=== PATIENT | male | born 1940 | race Caucasian/White ===

== ENCOUNTER → 2017-04-30 | Outpatient (CLI) | payer OTHER, MEDICARE ==
[~2017-04-30] MED LIST: GADOBUTROL 10 ML VIAL IVP ONE
== END ==
LOC: FIMAGING 13:52
PROVIDERS: ATTEND Radiology Radiation Oncology
DX: C02.9 Malignant neoplasm of tongue, unspecified (principal)
CPT/HCPCS: 70553; A9585

== ENCOUNTER → 2017-06-02 | Outpatient (CLI) | payer OTHER, MEDICARE | LOC: BHFA 15:30 | PROVIDERS: ATTEND Internal Medicine Cardiovascular Disease | DX: I25.10 Atherosclerotic heart disease of native coronary artery without angina pectoris (principal); E78.5 Hyperlipidemia, unspecified ==

== ENCOUNTER → 2017-07-12 | Outpatient (CLI) | payer OTHER, MEDICARE | LOC: BHFA 13:00 | PROVIDERS: ATTEND Internal Medicine Cardiovascular Disease | DX: I25.10 Atherosclerotic heart disease of native coronary artery without angina pectoris (principal) | CPT/HCPCS: 78452; 93017; A9500 ==

== ENCOUNTER → 2018-10-11 | Outpatient (CLI) | payer OTHER, MEDICARE | LOC: BHFA 13:00 | PROVIDERS: ATTEND Internal Medicine Cardiovascular Disease | DX: R94.31 Abnormal electrocardiogram [ECG] [EKG] (principal); I25.10 Atherosclerotic heart disease of native coronary artery without angina pectoris ==

== ENCOUNTER → 2019-01-29 | Outpatient (CLI) | payer OTHER, MEDICARE ==
--- NOTE | 2019-02-05 08:33 | GCON ---
[f rep st] CONSULTATION PODIATRIC CONSULTATION FOR [facility] DATE OF CONSULTATION: 02/04/2019 CHIEF COMPLAINT: Left foot infection. HISTORY OF PRESENT ILLNESS: The patient is a 78-year-old white male who presents to [facility] with chief complaint of an ulcer on the end of his left big toe. He relates a very long, complicated history to me. He relates that this started back in September of 2018. He relates the area became sore after wearing a pair of shoes. He immediately was moving to spend the winter in [place] where the area became red and eventually ulcerated. He was seen at an urgent care where he was started on an antibiotic , which eventually was of no benefit. He relates that a week later, he was seen again at the urgent care and immediately sent to the emergency room. They started him on IV antibiotics. At that time, he saw 3 different doctors who all recommended amputation to him. He relates that ultimately a small piece of the bone was removed, but no toe amputation was performed. He was started on vancomycin and ceftazidime. He relates that he also started hyperbaric oxygen with Dr. Bernal at the [facility]. He relates that after a couple of weeks, they stopped the vancomycin, and the other antibiotic eventually gave him C difficile. He relates that he was then hospitalized for approximately a week. During that time, he had growth factors applied to the surgical site and eventually on January 21, the area was sutured closed. On January 22, he returned to [facility] and was seen by Dr. Keyona Salgado on the . Since that time, he has been on oral vancomycin waiting to see if the ulceration would heal. He related that upon looking at the ulceration today that it was much larger than it was when it was attempted to be closed surgically. He wonders what other options are available at this time. PAST MEDICAL HISTORY: Remarkable for coronary artery disease, congestive heart failure, Clostridium difficile, diabetes mellitus, history of DVT, atrial fibrillation. PAST SURGICAL HISTORY: Remarkable for left Achilles tendon repair, cataract surgeries, rotator cuff repair, bone biopsy, left hallux. MEDICATIONS: Eliquis, Levemir, Lyrica, metoprolol, NovoLog, simvastatin, vancomycin. ALLERGIES: NKDA. SOCIAL HISTORY: The patient lives at home. Denies smoking or drinking. FAMILY HISTORY: Noncontributory. REVIEW OF SYSTEMS: A 10-point review of systems was performed and deemed negative with the exception of aforementioned medical issues. PHYSICAL EXAM: GENERAL APPERANCE: Well-nourished, well-developed 78-year-old white male in no sign of acute distress. Alert and oriented x3. VITALS: Per list in chart. LOWER EXTREMITY: Vascular, dorsalis pedis, posterior tibial pulses were palpable bilaterally. Capillary refill to the hallux is slightly decreased. Hair growth is diminished. There is mild edema occurring in the left hallux at this time. DERMATOLOGIC: Tone, texture and turgor of the skin are grossly within normal limits. There is an obvious ulceration at the distal tip of the left hallux. It has [address] that have ripped through the far side of the incision. Upon removal, this is noted to be a full-thickness ulceration with slough material at its base. There is hyperkeratotic tissue around the wound edges. After debridement, the area measured 8 x 13 x 10 mm. It probed close but not directly to bone. NEUROLOGIC: Achilles, patellar reflex 2+ bilaterally. Muscle strength 5/5. 5.07 monofilament wire testing shows decreased sensation to both lower extremities. MUSCULOSKELETAL: Range of motion of ankle and subtalar joints are within normal limits and without pain or crepitus. No contraction of the hallux is appreciable. X-RAYS/LABS: X-ray evaluation not performed. Laboratory values not performed. IMPRESSION: 1. Diabetes mellitus. 2. Peripheral neuropathy. 3. 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 PLAN: Treatment today consisted of evaluation of the area. It was decided that debridement was necessary. Informed consent was obtained. The stitches were removed before thorough debridement was performed with a 15 blade back to healthy tissue. The area was cleaned appropriately before being dressed with Hydrofera Blue and a light sterile dressing. We talked about getting an MRI at this time to further evaluate the site for osteomyelitis. If any is seen, I will likely recommend amputation of the affected portion of the hallux. He was understanding. All questions were answered. I will reevaluate him again after the MRI has been performed or sooner if he sees any signs of infection. /[id number]/MODL MTDD
== END ==
LOC: FIMAGING 16:14
PROVIDERS: ATTEND Physician Assistant Medical
DX: R91.8 Other nonspecific abnormal finding of lung field (principal); I50.9 Heart failure, unspecified

== ENCOUNTER → 2019-02-12 | Outpatient (CLI) | payer OTHER, MEDICARE | LOC: FIMAGING 15:15 | PROVIDERS: ATTEND Podiatrist Primary Podiatric Medicine | DX: L97.521 Non-pressure chronic ulcer of other part of left foot limited to breakdown of skin (principal); L03.032 Cellulitis of left toe | CPT/HCPCS: 73720; A9585; 82565-PO ==

== ENCOUNTER → 2019-02-19 | Outpatient (CLI) | payer OTHER, MEDICARE | LOC: BHFA 11:30 | PROVIDERS: ATTEND Internal Medicine Cardiovascular Disease | DX: I50.9 Heart failure, unspecified (principal) | CPT/HCPCS: 78452; 93017; 93306; A9500; J2785 ==

== ENCOUNTER 2019-03-11 12:51 | Day surgery (SDC) | payer OTHER, MEDICARE ==
[2019-03-11] MEDS ORDERED: ceFAZolin 2 GM/DEXTROSE 100 ML IV ONE (13:39)
[2019-03-11] MEDS ORDERED: LR 1,000 ML IV ONE (13:45)
--- NOTE | 2019-03-11 14:12 | PDHPUP ---
History & Physical Update H&P update statement: This history and physical update is based on an assessment of the patient which was completed after admission or registration (within 24 hours), but prior to the surgery/procedure. H&P update: H&P reviewed & patient examined, no change in patient's condition since H&P completed
[2019-03-11] MEDS ORDERED: BUPIVACAINE 0.5% 30 ML SDV ONE (14:14)
[2019-03-11] MEDS ORDERED: BACITRACIN 50,000 UNITS/10 ML SYR IRR ONE (14:14)
--- NOTE | 2019-03-11 14:15 | PDANEPAE ---
ANE Past Medical History - Cardiovascular History Hx Hypertension: Yes Hx Arrhythmias: Yes Hx Chest Pain: No Hx Coronary Artery / Peripheral Vascular Disease: Yes Hx CHF / Valvular Disease: Yes Hx Palpitations: No Cardiovascular History Comment: PAF,CHF,DVT. no AFIB since hospitalization - Pulmonary History Hx COPD: No Hx Asthma/Reactive Airway Disease: No Hx Recent Upper Respiratory Infection: No Hx Oxygen in Use at Home: No Hx Sleep Apnea: No Sleep Apnea Screening Result - Last Documented: Positive - Neurologic History Hx Cerebrovascular Accident: No Hx Seizures: No Hx Dementia: No - Endocrine History Hx Diabetes: Yes Hypothyroid: No Hyperthyroid: No Obesity: no Endocrine History Comment: type 1 IDDM - Renal History Hx Renal Disorders: No - Liver History Hx Hepatic Disorders: No - Neurological & Psychiatric Hx Hx Neurological and Psychiatric Disorders: Yes Neurological / Psychiatric History Comment: peripheral neuropathy - Cancer History Hx Cancer: Yes Cancer History Comment: skin cancer removed x2 - Congenital Disorder History Hx Congenital Disorders: No - GI History GERD: no Hx Gastrointestinal Disorders: Yes Gastrointestinal History Comment: colitis C-DIFF - Other Health History Other Health History: very [place]. diabetic retinopathy. DVT at picc line insertion site - Chronic Pain History Chronic Pain: No - Surgical History Prior Surgeries: achilles tendon repaired. rotator cuff repair ANE Review of Systems Review of Systems: - Exercise capacity Exercise capacity: >=4 METS, limited by disability METS (RN): 4 METS ANE Patient History - Allergies Allergies/Adverse Reactions: ibuprofen Allergy (Verified 08/29/12 15:15) Diarrhea - Home Medications Home Medications: Eliquis 03/07/19 [Last Taken 03/10/19] Levemir 03/07/19 [Last Taken Unknown] Lyrica 03/07/19 [Last Taken 03/11/19] Novolin N 03/07/19 [Last Taken Unknown] Simvastatin 03/07/19 [Last Taken Unknown] novoLOG 03/07/19 [Last Taken 03/11/19] - NPO status NPO Since - Liquids (Date): 03/11/19 NPO Since - Liquids (Time): 06:30 NPO Since - Solids (Date): 03/11/19 NPO Since - Solids (Time): 06:30 - Anes Hx Anes Hx: no prior problems - Smoking Hx Smoking Status: Never smoked Marijuana use: No - Alcohol Use Alcohol Use: Rarely - Family Anes Hx Family Anes Hx: neg - N/A Family Hx Anesthesia Complications: none ANE Labs/Vital Signs - Labs Result Diagrams: 03/11/19 14:10 - Vital Signs Blood Pressure: 147/80 Heart Rate: 77 Respiratory Rate: 16 O2 Sat (%): 92 Height: 182.88 cm Weight: 78.471 kg ANE Physical Exam - Airway Neck exam: decreased ROM Mallampati Score: Class 2 Mouth exam: normal dental/mouth exam - Pulmonary Pulmonary: no respiratory distress, no rales or rhonchi, clear to auscultation - Cardiovascular Cardiovascular: regular rate and rhythym, no murmur, rub, or gallop - ASA Status ASA Status: III ANE Anesthesia Plan Anesthesia Plan: MAC Total IV Anesthesia: Yes
[2019-03-11] MEDS ORDERED: PROPOFOL/EMULSION 500 MG/50 ML BOTTLE IV ONE (14:46)
[2019-03-11] MEDS ORDERED: LIDOCAINE 2% 5 ML SDV ONE (14:47)
[2019-03-11] MEDS ORDERED: INSULIN REGULAR HUMAN 100 UNIT/ML UNIT SC ONE (15:00)
[2019-03-11] MEDS ORDERED: ONDANSETRON 4 MG/2 ML VIAL IVP PRN (15:07)
[2019-03-11] MEDS ORDERED: NALOXONE HCL 0.4 MG/ML INJ IVP PRN (15:07)
[2019-03-11] MEDS ORDERED: PHENYLEPHRINE HCL 100 MCG/ML SYR IVP PRN (15:07)
[2019-03-11] MEDS ORDERED: LR 500 ML IV PRN (15:07)
[2019-03-11] MEDS ORDERED: OXYCODONE/APAP 5/325 TAB PO PRN (15:25)
[2019-03-11 16:39] VITALS: BP 137/79
--- NOTE | 2019-03-11 17:59 | POSTANESTH ---
Post Anesthetic Evaluation Cardiovascular Status: Similar to Pre-Op Cond Respiratory Status: Similar to Pre-op Cond. Level of Consciousness/Mental Status: Can Participate in Eval Pain Control: Adequate, Prn Tx Ordered Nausea/Vomiting Control: Adequate, Prn Tx Ordered Complications Possibly Related to Anesthesia: None Noted
--- NOTE | 2019-03-12 13:40 | GOP ---
[f rep st] OPERATIVE REPORT DATE OF OPERATION: 03/11/2019 SURGEON: Librado Whitfield DPM TRAVEL PT: None. ANESTHESIA: MAC with local 10 mL 0.5% Marcaine plain. PREOPERATIVE DIAGNOSIS: Osteomyelitis, great toe, left foot. POSTOPERATIVE DIAGNOSIS: Osteomyelitis, great toe, left foot. PROCEDURE PERFORMED: FINDINGS: Consistent with diagnosis. ESTIMATED BLOOD LOSS: Zero. DESCRIPTION OF PROCEDURE: After identification, patient brought to the operating room, placed on the operating table in the supine position. Following IV sedation, local anesthesia obtained around the patient's left foot utilizing a total of 10 mL 0.5% Marcaine plain. The foot was then scrubbed, pre pped, and draped in the usual aseptic manner. A pneumatic ankle tourniquet was placed around the pat ient's left ankle with ample padding. Esmarch bandage was utilized to exsanguinate the patient's lef t lower extremity. The pneumatic ankle tourniquet was then inflated. Attention was directed to the distal aspect of the patient's left great toe where 2 converging semi-e lliptical incisions were made around the proximal interphalangeal joint. This incision was deepened through the subcutaneous tissue to the level of the joint, which was disarticulated. The distal grea t toe was passed from the operative field. A sample of the bone will be sent to microbiology for cul ture. The toe will be sent to pathology for evaluation. The wound was then flushed with copious amounts of normal sterile saline solution. A clean sample of the proximal phalanx was resected with a rongeur and will be sent for culture to microbiology. The skin flap was then remodeled and the plantar skin is flapped up to meet the dorsal skin. The skin ed ges are approximated using 4-0 nylon in a combination of horizontal mattress and simple suture techni que. The incision site was then dressed with iodoform, 4 x 4 gauze, Kerlix, Francisco J bandage. Patient tr ansferred to the postoperative recovery area with vital signs stable and vascular status intact to th e left foot. Patient tolerated procedure and anesthesia well. SURGEON: Librado Whitfield DPM. PROCEDURE: Partial amputation of great toe, left foot. HEMOSTASIS: Left pneumatic ankle tourniquet inflated to 250 mmHg for 20 minutes. MATERIALS: 4-0 nylon. INJECTABLES: None. CONDITION: Stable. INDICATIONS FOR PROCEDURE: Patient with long-standing history of a wound in the left great toe. He underwent wound care, which did not heal the wound. He was subsequently diagnosed with a nonhealing wound and osteomyelitis. He was treated with oral antibiotics, which he failed. He was treated with IV antibiotics via a PICC line, which he failed. He was treated with hyperbaric oxygen, which he fa iled. He has failed all nonsurgical treatment and has elected to undergo a surgical amputation of th e left great toe at this time. /[id number]/MODL
== END 2019-03-11 17:24 | disposition home or self-care (01) ==
LOC: FSGY 12:51
PROVIDERS: ATTEND Podiatrist
PROC: 0Y6Q0Z2 Detachment at Left 1st Toe, Mid, Open Approach (ICD-10-PCS; principal; 2019-03-11 14:15)
DX: M86.9 Osteomyelitis, unspecified (principal); I50.9 Heart failure, unspecified; I48.0 Paroxysmal atrial fibrillation; I25.10 Atherosclerotic heart disease of native coronary artery without angina pectoris; E10.51 Type 1 diabetes mellitus with diabetic peripheral angiopathy without gangrene; E10.319 Type 1 diabetes mellitus with unspecified diabetic retinopathy without macular edema; Z86.718 Personal history of other venous thrombosis and embolism
CPT/HCPCS: J1815; J2704

== ENCOUNTER 2019-03-17 18:58 | Inpatient (IN) | payer OTHER, MEDICARE | END 2019-03-24 15:11 | disposition home health service (06) | LOC: F3E 21:05 ==

== ENCOUNTER 2019-03-26 14:20 | Inpatient (IN) | payer OTHER, MEDICARE | END 2019-04-05 15:48 | LOC: F3E 18:08 ==